=== PATIENT | female | born 1995 | race Caucasian/White ===

== ENCOUNTER 2018-01-21 08:41 | Day surgery (SDC) | payer BC ==
--- OUTSIDE RECORDS SUMMARY | 2018-01-21 08:50 | XMS REPORT | Clinical Summary ---
:1995 Author Organization [facility] Address [address] [place] [address] Care Team Providers Name Role Phone Asked, No Pcp Primary Care Provider Unavailable Allergies No Known Allergies Current Medications No known medications Active Problems Not on file Encounters Date Type Specialty Care Team Description 11/10/2017 Office Visit Obstetrics and Della, Katie, Amenorrhea (Primary Dx) Gynecology MD after 01/20/2017 Social History Tobacco Use Types Packs/Day Years Used Date Never Smoker Smokeless Tobacco: Never Used Alcohol Use Drinks/Week oz/Week Comments Yes social Sex Assigned at Date Recorded Not on file Last Filed Vital Signs Vital Sign Reading Time Taken Blood Pressure 115/80 11/10/2017 10:14 AM CDT Pulse 92 11/10/2017 10:14 AM CDT Temperature 37 C (98.6 F) 11/10/2017 10:14 AM CDT Respiratory Rate - - Oxygen Saturation - - Inhaled Oxygen Concentration - - Weight - - Height - - Body Mass Index - - Plan of Treatment Health Maintenance Due Date Last Done Comments CHLAMYDIA SCREENING 2011 CERVICAL CANCER SCREENING 2016 INFLUENZA VACCINE 03/16/2018 Results TSH reflex to T4 (11/10/2017 11:06 AM) Component Value Ref Range TSH reflex to FT4 2.60 mIU/L Comment: Reference Range > or=20 Years0.40-4.50 Ranges First trimester0.26-2.66 Second trimester 0.55-2.73 Third trimester0.43-2.91 Specimen Performing Laboratory [facility] Prolactin level (11/10/2017 11:06 AM) Component Value Ref Range Prolactin 12.7 ng/mL Comment: Reference Range Females Non-3.0-30.0 10.0-209.0 Postmenopausal2.0-20.0 Specimen Performing Laboratory [facility] hCG quantitative, serum (11/10/2017 11:06 AM) Component Value Ref Range hCG quantitative, serum <2 mIU/mL Comment: Reference Range Non or premenopausal<5 Postmenopausal <10 Values from different assay methods may vary. The use of this assay to monitor or to diagnose patients with cancer or any condition unrelated to has not been cleared or approved by the FDA or the tribal council member of the assay. Specimen Performing Laboratory [facility] Luteinizing hormone (11/10/2017 11:06 AM) Component Value Ref Range Luteinizing hormone 14.7 mIU/mL Comment: Reference Range Follicular Phase1.9-12.5 Mid-Cycle Peak8.7-76.3 Luteal Phase0.5-16.9 Sofvpinbkwgnby07.0-54.7 Specimen Performing Laboratory [facility] Follicle stimulating hormone (11/10/2017 11:06 AM) Component Value Ref Range Follicle stimulating hormone 6.6 mIU/mL Comment: Reference Range Follicular Phase 2.5-10.2 Mid-cycle Peak 3.1-17.7 Luteal Phase 1.5- 9.1 Postmenopausal 23.0-116.3 Specimen Performing Laboratory [facility] POC , urine (11/10/2017 11:05 AM) Component Value Ref Range test urine, POC Negative QC done No Specimen Performing Laboratory Urine after 01/20/2017 Insurance Payer Benefit Plan / Group Subscriber ID Type Phone Address BS BCBS CHOICE PPO/FEDERAL EMPL PPO xxxxxxxxxxxx PPO
[2018-01-21 09:14] LABS: Specific Gravity >= 1.030 (1.005-1.030)
[2018-01-21] MEDS ORDERED: Ringers Lactate 1,000 ML IV ONE (09:25)
[2018-01-21] MEDS ORDERED: PROPOFOL 200 MG/20 ML VIAL IV ONE (10:04)
[2018-01-21] MEDS ORDERED: LIDOCAINE 2% MPF 5 ML VIAL ONE (10:06)
[2018-01-21] MEDS ORDERED: DEXAMETHASONE 10 MG/ML VIAL ONE (10:06)
[2018-01-21] MEDS ORDERED: FENTANYL CITR 100 MCG/2 ML ONE (10:07)
[2018-01-21] MEDS ORDERED: ONDANSETRON HCL 40 MG/20 ML VIAL ONE (10:07)
[2018-01-21] MEDS ORDERED: MIDAZOLAM HCL 2 MG/2 ML INJ ONE (10:14)
[2018-01-21] MEDS ORDERED: GLYCOPYRROLATE 0.2 MG/ML SYR ONE (10:25)
[2018-01-21] MEDS ORDERED: NEOSTIGMINE 1 MG/ML -5 ML SYRINGE ONE (10:27)
[2018-01-21] MEDS ORDERED: ROCURONIUM 50 MG/5 ML VIAL IV ONE (10:36)
[2018-01-21] MEDS: BUPIVACA 0.5%/EPI 0.0005%/PF 10 ML VIAL ONE ×2 (10:57→11:05)
[2018-01-21] MEDS ORDERED: EPINEPHRINE/PF 1 MG/ML AMP ONE (11:01)
--- NOTE | 2018-01-21 11:10 | P.OP ---
Building Serviceman: None Pre-Op Diagnosis: Chronic tonsillitis Post-Op Diagnosis: Chronic tonsillitis Procedure: Tonsillectomy Anesthesia: Other (GA via ETT) Fluids/ Blood products: Other (crystalloid 400ml) Estimated blood loss: Other (5ml) Specimen: Other (both tonsils) Complications: None Implants: None Indication: Patient persistent issues in spite of good medical management. Details of Operation: The patient was brought to the operating room and placed under general anesthesia via endotracheal tube. The head of bed was turned 90 degrees. A Shoulder roll was placed and the neck extended. A head drape was applied. The McIvor mouth gag was placed and suspended from the Vergara stand. The oxygen concentrate was confirmed with the kayaking instructor and was less than forty percent. Weight-based dexamethasone was administered by the kayaking instructor. The soft palate was palpated and there was no submucous cleft. A red rubber catheter was placed in the nose and secured to retract the soft palate. The tonsils were noted to be scarred and chronically inflammed. The left tonsil was grasped with a straight Allis clamp. The bovie electocautery was used to incision the mucosa over the anterior pillar and identify the tonsillar capsule. The tonsil was dissected using cautery and blunt dissection until free from soft tissue attachments. A tonsil ball was placed to aid hemostasis. The right tonsil was removed in a similar manner. The laryngeal mirror was used to visualize the nasopharynx. The adenoid size was nil. The adenoids were not removed. Hemostasis was achieved using packing, including epinephrine soaked tonsil ball to the left inferior tonsil/base of tongue junction and cautery as needed. Blood loss was minimal. All packing was removed. The tonsillar fossae were injected with 0.5% Marcaine with epinephrine. A total of 1 mL was used. A Salum sump orogastric tube was used to decompress the stomach. The red rubber catheter was removed and used to suction the nasopharynx and nasal cavity. The mouth gag was removed; there was no evidence of injury to the lips, teeth or tongue. The mandible was mobile. Disposition: The patient was then awakened from anesthesia and taken to the recovery room in stable condition.
[2018-01-21] MEDS: MEPERIDINE HCL 50 MG/ML AMP ONE ×4 (11:30→11:59)
[2018-01-21] MEDS ORDERED: ONDANSETRON 4 MG/2 ML VIAL ONE (11:56)
== END 2018-01-21 13:15 | disposition home or self-care (01) ==
LOC: OR 08:41
PROVIDERS: ATTEND Otolaryngology
PROC: 0CTPXZZ Resection of Tonsils, External Approach (ICD-10-PCS; principal; 2018-01-21 11:00)
DX: J35.01 Chronic tonsillitis (principal); J03.01 Acute recurrent streptococcal tonsillitis; J35.8 Other chronic diseases of tonsils and adenoids; Z83.3 Family history of diabetes mellitus; Z82.49 Family history of ischemic heart disease and other diseases of the circulatory system; Z82.5 Family history of asthma and other chronic lower respiratory diseases
CPT/HCPCS: 81025; 88304; 88305; J0171; J1100; J2175; J2250; J2405; J2710; J3010

== ENCOUNTER 2018-02-05 20:58 | Emergency (ER) | payer BC ==
--- OUTSIDE RECORDS SUMMARY | 2018-02-05 21:00 | XMS REPORT | Clinical Summary ---
:1995 Author Organization [facility] Address [address] [place] [address] Care Team Providers Name Role Phone Asked, No Pcp Primary Care Provider Unavailable Allergies No Known Allergies Current Medications No known medications Active Problems Not on file Encounters Date Type Specialty Care Team Description 11/10/2017 Office Visit Obstetrics and Della, Katie, Amenorrhea (Primary Dx) Gynecology MD after 02/04/2017 Social History Tobacco Use Types Packs/Day Years [...] CERVICAL CANCER SCREENING 2016 INFLUENZA VACCINE 03/16/2018 Procedures Procedure Name Priority Date/Time Associated Comments Diagnosis TSH REFLEX TO T4F Routine 11/10/2017 11:06 Amenorrhea Results for this AM CDT procedure are in the results section. PROLACTIN LEVEL Routine 11/10/2017 11:06 Amenorrhea Results for this AM CDT procedure are in the results section. LUTEINIZING HORMONE Routine 11/10/2017 11:06 Amenorrhea Results for this AM CDT procedure are in the results section. FOLLICLE STIMULATING Routine 11/10/2017 11:06 Amenorrhea Results for this HORMONE AM CDT procedure are in the results section. HCG QUANTITATIVE, Routine 11/10/2017 11:06 Amenorrhea Results for this SERUM AM CDT procedure are in the results section. POC , URINE Routine 11/10/2017 11:05 Amenorrhea Results for this AM CDT procedure are in the results section. after 02/04/2017 Results TSH reflex to T4 (11/10/2017 11:06 AM) TSH reflex to FT4 2.60 mIU/L [facility] [place] Comment: Reference Range > or=20 Years0.40-4.50 Ranges First trimester0.26-2.66 Second trimester 0.55-2.73 Third trimester0.43-2.91 Specimen Blood Resulting Agency Comment Performing Organization Information: Site ID: [facility] Name: [facility] Address: [address] [place] [phone] Director: Renetta Nix MD Performing Organization Address [facility] Phone Number [employer] [address] [phone] Prolactin level (11/10/2017 11:06 AM) Prolactin 12.7 ng/mL [facility] [place] Comment: Reference Range Females Non-3.0-30.0 10.0-209.0 Postmenopausal2.0-20.0 Specimen Blood Resulting Agency Comment Performing Organization Information: Site ID: [facility] Name: [facility] Address: [address] [place] [phone] Director: Renetta Nix MD Performing Organization Address [facility] Phone Number [employer] [address] [address] hCG quantitative, serum (11/10/2017 11:06 AM) hCG quantitative, serum <2 mIU/mL [facility] Comment: Reference Range Non or premenopausal<5 Postmenopausal <10 Values from different assay methods may vary. The use of this assay to monitor or to diagnose patients with cancer or any condition unrelated to has not been cleared or approved by the FDA or the grain elevator agent of the assay. Specimen Blood Resulting Agency Comment Performing Organization Information: Site ID: [facility] Name: [facility] Address: [address] [place] [phone] Director: Renetta Nix MD Performing Organization Address [facility]/State/Zipcode Phone Number [employer] [facility] [address] [place] [address] [phone] Luteinizing hormone (11/10/2017 11:06 AM) Luteinizing hormone 14.7 mIU/mL [facility] [place] Comment: Reference Range Follicular Phase1.9-12.5 Mid-Cycle Peak8.7-76.3 Luteal Phase0.5-16.9 Jrjxjenrtevnlp06.0-54.7 Specimen Blood Resulting Agency Comment Performing Organization Information: Site ID: [facility] Name: [facility] Address: [address] [place] [phone] Director: Renetta Nix MD Performing Organization Address City/[facility] Phone Number [employer] [place] [address] Follicle stimulating hormone (11/10/2017 11:06 AM) Follicle stimulating 6.6 mIU/mL [facility] [place] hormone Comment: Reference Range Follicular Phase 2.5-10.2 Mid-cycle Peak 3.1-17.7 Luteal Phase 1.5- 9.1 Postmenopausal 23.0-116.3 Specimen Blood Resulting Agency Comment Performing Organization Information: Site ID: [facility] Name: [facility] Address: [address] [place] [phone] Director: Renetta Nix MD Performing Organization Address [facility] Phone Number [employer] [address] [phone] POC , urine (11/10/2017 11:05 AM) test urine, POC Negative QC done No Specimen Urine after 02/04/2017 Insurance Payer Benefit Plan / Group Subscriber ID Type Phone Address BCBS BCBS CHOICE PPO/FEDERAL EMPL PPO xxxxxxxxxxxx PPO
--- NOTE | 2018-02-05 21:23 | EDPHYS ---
Physician Documentation [facility] Name: Riya Marin Age: 22 yrs Sex: Female : 1995 Arrival Date: 02/05/2018 Time: 20:59 Bed 28 Private MD: ED Physician Phillip Swanson HPI: 02/05 21:16 This 22 yrs old Female presents to ER via Ambulatory with complaints of Post ps1 Surgical Pain - Tonsillectomy, Fever, Vomiting. 21:16 patient had tonsillectomy on 01/21 per [facility]. Patient states that she has been healing ps1 well and has been pain controlled. No bleeding. [place] like she had FB sensation in back of throat and looked in mirror and noticed white patch on the back of her right tonsil. Concerned and came to ED for evaluation. . 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 - Social history:: Smoking status: Patient/guardian denies using tobacco. - Ebola Screening: : No symptoms or risks identified at this time. ROS: 21:16 Constitutional: Negative for fever, chills, and weight loss, Eyes: Negative for injury, ps1 pain, redness, and discharge, Cardiovascular: Negative for chest pain, palpitations, and edema, Respiratory: Negative for shortness of breath, cough, wheezing, and pleuritic chest pain, Abdomen/GI: Negative for abdominal pain, nausea, vomiting, diarrhea, and constipation, Back: Negative for injury and pain, MS/Extremity: Negative for injury and deformity, Skin: Negative for injury, rash, and discoloration, Neuro: Negative for headache, weakness, numbness, tingling, and seizure. 21:16 ENT: Positive for foreign body sensation, of the right aspect of posterior pharynx. Exam: 21:16 Constitutional: This is a well developed, well nourished patient who is awake, alert, ps1 and in no acute distress. Head/Face: Normocephalic, atraumatic. Chest/axilla: Normal chest wall appearance and motion. Nontender with no deformity. No lesions are appreciated. Cardiovascular: Regular rate and rhythm. No gallops, murmurs, or rubs. Normal PMI, no JVD. No pulse deficits. Respiratory: Lungs have equal breath sounds bilaterally, clear to auscultation and percussion. No rales, rhonchi or wheezes noted. No increased work of breathing, no retractions or nasal flaring. Abdomen/GI: Soft, non-tender, with normal bowel sounds. No distension or tympany. No guarding or rebound. No evidence of tenderness throughout. Skin: Warm, dry with normal turgor. Normal color with no rashes, no lesions, and no evidence of cellulitis. MS/ Extremity: Pulses equal, no cyanosis. Neurovascular intact. Full, normal range of motion. Neuro: Awake and alert, GCS 15, oriented to person, place, time, and situation. Cranial nerves II-XII grossly intact. Sensory grossly intact. 21:16 ENT: TM's: are normal, Nose: is normal, Mouth: is normal, Posterior pharynx: Tonsils: has white scab with normal healing. FB sensation is likely secondary to healing. Left tonsil is normal. Vital Signs: 21:04 BP 130 / 87; Pulse 81; Resp 16; Temp 98.1; Pulse Ox 97% on R/A; Weight 77.11 kg; Height aa1 5 ft. 3 in. (160.02 cm); Pain 0/10; 21:04 Body Mass Index 30.11 (77.11 kg, 160.02 cm) aa1 MDM: 21:16 Data reviewed: vital signs, nurses notes. ps1 21:23 Patient medically screened. ps1 Administered Medications: No medications were administered Disposition: 02/05/18 21:23 Discharged to Home. Impression: Post surgical wound check, FB sensation. - Condition is Stable. - Discharge Instructions: Tonsillectomy, Adult, Care After, [id number]. - Medication Reconciliation Form, Thank You Letter, Antibiotic Education, Prescription Opioid Use form. - Follow up: Victoria Norman MD; When: As needed; Reason: Recheck today's complaints, Continuance of care, Re-evaluation by your physician. Follow up: Emergency Department; When: As needed; Reason: Trouble breathing, Worsening of condition, trouble swallowing. - Problem is an ongoing problem. - Symptoms have improved. Signatures: Amirah Calix RN RN aa1 Phillip Swanson MD MD ps1 Ale Desai RN RN rk2 Corrections: (The following items were deleted from the chart) 21:34 21:23 02/05/2018 21:23 Discharged to Home. Impression: Post surgical wound check; FB rk2 sensation. Condition is Stable. Forms are Medication Reconciliation Form, Thank You Letter, Antibiotic Education, Prescription Opioid Use. Follow up: Victoria Norman; When: As needed; Reason: Recheck today's complaints, Continuance of care, Re-evaluation by your physician. Follow up: Emergency Department; When: As needed; Reason: Trouble breathing, Worsening of condition, trouble swallowing. Problem is an ongoing problem. Symptoms have improved. ps1
--- NOTE | 2018-02-05 21:23 | ER ---
Nurse's Notes [facility] Name: Riya Marin Age: 22 yrs Sex: Female : 1995 Arrival Date: 02/05/2018 Time: 20:59 Bed 28 Private MD: Diagnosis: Post surgical wound check;FB sensation Presentation: 02/05 21:02 Presenting complaint: Patient states: she had a tonsillectomy on 01/21 and is still aa1 having pain on the right side. States she looked at it today for the first time and noticed it wasn't healed so she decided to come to the ED. Transition of care: patient was not received from another setting of care. Onset of symptoms was January 21, 2018. Risk Assessment: Do you want to hurt yourself or someone else? Patient reports no desire to harm self or others. Initial Sepsis Screen: Does the patient meet any 2 criteria? No. Patient's initial sepsis screen is negative. Does the patient have a suspected source of infection? Yes: Skin breakdown/wound. Care prior to arrival: None. 21:02 Method Of Arrival: Ambulatory aa1 21:02 Acuity: JAQUELINE 4 aa1 Triage Assessment: 21:04 General: Appears in no apparent distress. comfortable, Behavior is calm, cooperative, aa1 appropriate for age. 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 - Social history:: Smoking status: Patient/guardian denies using tobacco. - Ebola Screening: : No symptoms or risks identified at this time. Screenin:15 Abuse screen: Denies threats or abuse. rk2 21:15 Nutritional screening: No deficits noted. Tuberculosis screening: No symptoms or risk rk2 factors identified. Fall Risk None identified. Assessment: 21:15 General: Appears in no apparent distress. well groomed, well developed, well nourished, rk2 Behavior is calm, cooperative, appropriate for age. Pain: Complains of pain in right aspect of posterior pharynx. 21:15 Neuro: Level of Consciousness is alert, obeys commands, Oriented to person, place, rk2 time, situation. Respiratory: Airway is patent Respiratory effort is even, unlabored, Respiratory pattern is regular, symmetrical. GI: NA. EENT: Reports pain. Derm: Skin is pink, warm \T\ dry. Vital Signs: 21:04 BP 130 / 87; Pulse 81; Resp 16; Temp 98.1; Pulse Ox 97% on R/A; Weight 77.11 kg; Height aa1 5 ft. 3 in. (160.02 cm); Pain 0/10; 21:04 Body Mass Index 30.11 (77.11 kg, 160.02 cm) aa1 ED Course: 20:59 Patient arrived in ED. am2 21:04 Triage completed. aa1 21:04 Arm band placed on right wrist. Patient placed in an exam room, on a stretcher. aa1 21:09 Phillip Swanson MD is Attending Physician. ps1 21:15 Patient has correct armband on for positive identification. Bed in low position. Call rk2 light in reach. 21:19 Ale Desai RN is Primary Nurse. rk2 21:22 Victoria Norman MD is Referral Physician. ps1 21:34 No provider procedures requiring assistance completed. Patient did not have IV access rk2 during this emergency room visit. Administered Medications: No medications were administered Outcome: 21:23 Discharge ordered by . ps1 21:34 Discharged to home ambulatory. rk2 21:34 Condition: good 21:34 Discharge instructions given to patient. 21:34 Patient left the ED. rk2 Signatures: Amirah Calix RN RN aa1 Nydia Robin am2 Phillip Swanson MD MD ps1 Ale Desai RN RN rk2
== END 2018-02-05 21:34 | disposition home or self-care (01) ==
LOC: ER 20:58
DX: G89.18 Other acute postprocedural pain (principal); Z09 Encounter for follow-up examination after completed treatment for conditions other than malignant neoplasm; Z98.890 Other specified postprocedural states
CPT/HCPCS: 99281